=== PATIENT | female | born 2000 | race Caucasian/White ===

== ENCOUNTER 2023-06-30 15:20 | Emergency (ER) | payer BC, SELFPAY ==
[2023-06-30 15:30] VITALS: BP 120/61
[2023-06-30 15:53] LABS: HCG, Urine Qualitative Screen Negative
[2023-06-30 16:13] VITALS: BMI 24.9
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
[2023-06-30 19:30] VITALS: BP 106/60
== END 2023-06-30 19:39 | disposition home or self-care (01) ==
LOC: EMR 15:20
PROVIDERS: EMERGENCY PHYSICIAN Emergency Medicine; FAMILY PHYSICIAN Family Medicine
DX: S02.2XXA Fracture of nasal bones, initial encounter for closed fracture (principal); S06.0XAA Concussion with loss of consciousness status unknown, initial encounter; Y04.0XXA Assault by unarmed brawl or fight, initial encounter; G44.309 Post-traumatic headache, unspecified, not intractable
CPT/HCPCS: 99284; 70450; 70486; 81025

== ENCOUNTER 2023-11-07 11:56 | Emergency (ER) | payer BC, SELFPAY ==
[2023-11-07 11:58] VITALS: BP 120/52
[2023-11-07 12:18] VITALS: BMI 27.9
--- NOTE | 2023-11-07 12:36 | ED.GENMED ---
History of Present Illness
General
Chief Complaint: Rectal Bleeding
Source: patient and family
Exam Limitations: none
Time Seen by Provider: 11/07/23 12:29
Travel History
Have you had any contact with someone who has COVID-19?: No
Do you have any symptoms of coronavirus? Fever > 100 degrees, chills, cough, shortness of breath, sore throat, loss of taste or smell, muscle aches, or headache?: No
History of Present Illness
History of Present Illness:
See MDM
Past History
Past History
ED Past Medical History: None
ED Past Surgical History: None
Social History
Tobacco: Non-smoker
Alcohol: None
Phy Exam
Physical Exam
Physical Exam:
See MDM
Course
Orders/Labs/Results
Orders:
Orders
11/07/23 12:28
IV Insert/Care/Rem.- Treatment PRN
Straight cath- Treatment ONCE
11/07/23 12:35
CT Abd/pel W Iv And Oral Contr Urgent
Comment:
Reason For Exam: abd cramping and rectal bleeding
STOOL [C difficile Antigen & Toxins] Urgent
JORGE ALBERTO Source: Feces/Stool
Specimen Description:
Stool Culture Urgent
JORGE ALBERTO Source: Feces/Stool
Specimen Description:
Iohexol [Omnipaque] See Protocol PO NOW STA
Test Result ONCE
11/07/23 12:44
Ketorolac [Toradol] 30 mg IV NOW STA
11/07/23 12:48
Complete Blood Count/With Diff Urgent
Comprehensive Metabolic Panel Urgent
HCG, Serum Qualitative Screen Urgent
Lipase Urgent
Urinalysis Reflex To Culture Urgent
Date Specimen was Collected: 11/07/23
Time Specimen was Collected: 12:28
Abnormal Lab Results
11/07/23
12:48
Monocytes % 9.4 H %
(1.7-9.3)
Creatinine 0.5 L mg/dL
(0.6-1.0)
Glucose 114 H mg/dl
(70-99)
11/07/23 12:48
11/07/23 12:48
Vital Signs
Initial and Last Documented VS:
Initial Vital Signs
Temp Pulse Resp BP Pulse Ox
97.9 F 83 20 120/52 98
11/07/23 11:58 11/07/23 11:58 11/07/23 11:58 11/07/23 11:58 11/07/23 11:58
Last Documented Vital Signs
Temp Pulse Resp BP Pulse Ox
97.9 F 83 20 120/52 98
11/07/23 11:58 11/07/23 11:58 11/07/23 11:58 11/07/23 11:58 11/07/23 11:58
MDM/Problems Addressed
Differential Diagnosis Includes:
HPI and MDM Narrative:
23-year-old female presenting with mother for evaluation of 3 days of rectal bleeding. Patient states she has had normal bowel movements and has not been straining. She is noticing that blood is bright and dripping from her rectum after she
defecates. This is associated with back and abdominal cramping. She has mild headaches and feels nauseous. Mother denies family history of inflammatory bowel disease. Patient denies any recent travel and denies fevers.
On exam, she is well-appearing nontoxic. She has a soft and nontender abdomen. Internal rectal exam deferred but there is no evidence of fissure or external hemorrhoid on external exam
Physical exam
General: Well appearing and non-toxic
HEENT: protecting airway
Neck: appears supple
CV: No evidence of cyanosis
Resp: No accessory muscle use
Abd: Non-distended. Soft and nontender
Rectal: No external hemorrhoid or fissure or active bleeding
Extremities: No deformities
Neuro: alert
Psych: Normal affect
Skin: Intact
Problems Addressed including Acute and Chronic Conditions affecting care:
1. Bright red bleeding per rectum
Acuity: acute
Prognosis: stable
Details: Likely in the setting of internal hemorrhoid versus diverticulosis. Given the ongoing symptoms, will obtain basic blood work and CT to rule out other pathology such as inflammatory bowel disease. Patient and mother know that the
definitive test would be colonoscopy as an outpatient
Updates
1:20 PM patient updated on normal hemoglobin. She remains well-appearing and nontoxic
[address] negative for acute pathology. Discussed stool softener and follow-up with GI. Will place on 'GI office front office attendant ' [place] text role to help expedite follow-up. Discussed the incidental finding of renal lesion
Differential Diagnosis (but not limited to): Diverticulosis, infectious diarrhea, inflammatory bowel disease, internal hemorrhoid
Testing considered: Coags
Drug therapy (if applicable): OTC meds, please see d/c instruction regarding Rx drugs
Amount and/or Complexity of Data Reviewed
Clinical info obtained from: Patient. Mother states that there is no family history of inflammatory bowel disease
External data reviewed: N/A
Labs I independently reviewed (but not limited to): Hemoglobin stable
Radiology: The CT scan was personally and independently reviewed. In addition, official CT report reviewed.
Pulse Ox: not hypoxic
EKG independently reviewed: N/A
Order Expediter: N/A
Critical Care: N/A
Risk of Complication:
Social Determinants of health: Good social support
Discussed with other providers: N/A
Escalation of Care includes Admit/Obs: After being observed in the Emergency Department, pt stable for discharge.
Occasional wrong word or 'sound a like' substitutions may have occurred due to the inherent limitations of voice recognition software. Read the chart carefully and recognize, using context, where substitutions have occurred.
*Critical Care Note
Total Time (30-74mins, 75-104mins- exclusive of procedures): Not Applicable
ED Attending Note
-
Portions of this chart may have been created with voice recognition software.� Occasional wrong word or��sound alike� substitutions may have occurred due to the inherent limitations of voice recognition software.
Discharge Plan
Departure
Patient Disposition: Home (Routine Discharge)
Date of Disposition: 11/07/23
Time of Disposition: 17:06
Patient with high blood pressure during this ER visit?: No
Discharge Problem:
Bright red rectal bleeding
Instructions: Bloody Stools, Adult ED
Prescriptions:
No Action
Theragen Tablet
1 tab PO DAILY
ibuprofen 200 mg Tablet
400 mg PO Q8HPRN PRN (Reason: mild pain)
bupropion HCl 150 mg Tablet Extended Release 24 Hr
150 mg PO DAILY
Visbiome 112.5 billion cell Capsule
1 cap PO DAILY
Referrals:
Marcia Vasquez MD [Active] -
Amarilis Woodall DO [Family Provider] -
Activity Restrictions/Additional Instructions:
Please return for any worsening symptoms.
You may return at any time if you have further concerns.
Please follow up with your doctor at the first available appointment, preferably this week. Please discuss the CT findings of a small mass on your kidney. The reading was 'Subcentimeter low-attenuation right renal lesion too small to characterize.'
Please call the palletizer operator for follow-up.
Thank you for choosing [facility].
Interventions
Interventions:
*Risk Screen - Suicide Last Done: 11/07/23 11:58
*General Assessment Last Done: 11/07/23 11:58
*Neglect/Abuse Screening Last Done: 11/07/23 11:58
ED- Fall Risk Assessment Last Done: 11/07/23 12:19
*ED COVID-19 Vaccine History Last Done: 11/07/23 12:21
BQ-Jsgnnt-Asivrstikm Assessment Last Done: 11/07/23 12:20
ED- Cardiac Assessment Last Done: 11/07/23 12:19
ED- Pulmonary Assessment Last Done: 11/07/23 12:19
Discharge Date and Time
Print Language: SWEDISH
[2023-11-07] MEDS: TORADOL 30 MG IV (12:52)
[2023-11-07] MEDS: OMNIPAQUE 50 ML PO (12:53)
[2023-11-07 12:57] LABS: % Basophils 0.8 % (0-2); % Eosinophils 0.5 % (0-6); % Monocytes 9.4 % (1.7-9.3); % Neutrophils 61.3 % (42.2-75.2); Absolute Basophils 0.1 10^3/uL (0-0.2); Absolute Lymphocytes 1.7 10^3/uL (1.2-3.4); Absolute Monocytes 0.6 10^3/uL (0.1-0.6); Absolute Neutrophils 3.7 10^3/uL (1.4-6.5); Hematocrit 38.2 % (37.0-47.0); Hemoglobin 13.1 g/dL (12.0-16.0); Mean Corp Hgb Conc. 34.3 g/dL (33.0-37.0); Mean Corpuscular Hgb 29.4 pg (27.0-31.0); Mean Corpuscular Volume 85.7 fL (81.0-99.0); Mean Platelet Volume 9.8 fL (7.4-10.4); Nucleated Red Blood Cells % 0 %; Platelet Count 257 10^3/uL (130-400); Red Blood Cell Count 4.46 10^6/uL (4.20-5.40); Red Cell Dist. Width 12.7 % (11.5-14.5)
[2023-11-07 13:08] LABS: HCG, Serum Qualitative Screen Negative
[2023-11-07 13:27] LABS: ALT (SGPT) 15 U/L (0-35); AST (SGOT) 19 U/L (14-36); Albumin 4.3 g/dl (3.5-5.0); Alkaline Phosphatase 70 U/L (38-126); Blood Urea Nitrogen 8 mg/dl (7-17); Calcium 9.9 mg/dl (8.4-10.2); Carbon Dioxide 26 mmol/L (22-30); Chloride 105 mmol/L (98-107); Estimated Creatinine Clearance > 125 ml/min; Glucose 114 mg/dl (70-99); Potassium 3.8 mmol/L (3.5-5.1); Sodium 139 mmol/L (135-145); Total Bilirubin 0.3 mg/dl (0.2-1.3); Total Protein 6.8 g/dl (6.3-8.2); eGFR > 60.00
[2023-11-07 14:07] LABS: Lipase 60 U/L (23-300)
[2023-11-07 14:31] LABS: Urine Albumin Negative (Neg - Trace); Urine Bilirubin Negative (Negative); Urine Character Clear (Clear); Urine Color Yellow; Urine Glucose Negative (Negative); Urine Ketone Negative (Negative); Urine Leukocyte Negative (Negative); Urine Nitrite Negative (Negative); Urine Occult Blood Negative (Negative); Urine Urobilinogen Negative (Neg - 1+)
== END 2023-11-07 17:29 | disposition home or self-care (01) ==
LOC: EMR 11:56
PROVIDERS: Emergency Medicine; EMERGENCY PHYSICIAN Student in an Organized Health Care Education/Training Program; FAMILY PHYSICIAN Family Medicine
DX: K62.5 Hemorrhage of anus and rectum (principal)
CPT/HCPCS: 99285; 96374; 74177; 80053; 81003; 83690; 84703; 85025; Q9967

== ENCOUNTER → 2023-12-18 06:35 | Day surgery (SDC) | payer BC, SELFPAY | LOC: GI 06:35 | PROVIDERS: ATTENDING PHYSICIAN Internal Medicine Gastroenterology; FAMILY PHYSICIAN Family Medicine | DX: K62.5 Hemorrhage of anus and rectum (principal); R19.7 Diarrhea, unspecified; K64.0 First degree hemorrhoids; R11.2 Nausea with vomiting, unspecified; K29.50 Unspecified chronic gastritis without bleeding | CPT/HCPCS: 45380; 43239; 88305; 88342 ==